=== PATIENT | female | born 1950 | race Caucasian/White ===

== ENCOUNTER → 2017-12-20 | Outpatient (CLI) | payer OTHER, BC ==
[~2017-12-20] VITALS: Ht 167.6 cm; Wt 86.2 kg
[2017-12-20 08:24] VITALS: BP 147/83
[2017-12-20 08:44] LABS: HEMATOCRIT 48.8 % (37.0-47.0); HEMOGLOBIN 16.3 gm/dL (12.0-15.0); MCH 29.3 pg (26.0-34.0); MCHC 33.4 g/dL (28.0-37.0); MCV 87.8 fL (80.0-100.0); RBC 5.56 mil/uL (4.20-5.00); WBC 5.5 thou/uL (4.0-11.0)
[2017-12-20 08:52] LABS: CALCIUM 10.1 mg/dL (8.5-10.1); POTASSIUM 3.4 mmol/L (3.5-5.1)
[2017-12-20 08:57] LABS: PROTIME 10.6 Seconds (9.3-11.4)
== END | disposition home or self-care (01) ==
LOC: CAT 08:03 → SPEC 08:03 → CAT 14:26
PROVIDERS: Radiology Diagnostic Radiology
DX: M71.38 Other bursal cyst, other site (principal); I10 Essential (primary) hypertension; J45.909 Unspecified asthma, uncomplicated; E78.5 Hyperlipidemia, unspecified; K21.9 Gastro-esophageal reflux disease without esophagitis; Z79.899 Other long term (current) drug therapy; Z95.820 Peripheral vascular angioplasty status with implants and grafts